=== PATIENT | male | born 1960 | race Caucasian/White ===

== ENCOUNTER 2017-06-13 07:15 | Inpatient (IN) ==
[2017-06-13] MEDS ORDERED: Heparin 1,000 UNITS/500 mL NS 500 ML ONE ×2 (07:20→08:38)
[2017-06-13] MEDS ORDERED: Lidocaine -MPF 1% 2 ML VIAL ID ONE (07:41)
[2017-06-13] MEDS ORDERED: Albuterol 2.5 MG/3 ML NEBULIZER IH ONE (07:41)
[2017-06-13] MEDS ORDERED: Vancomycin 750 MG in D5% in Water 250 ML IVPB ONE ×2 (07:41→20:00)
[2017-06-13] MEDS ORDERED: CeFAZolin Pre 2,000 MG/100 ML 2,000 MG/100 ML BAG IVPB ONE (07:41)
[2017-06-13] MEDS ORDERED: Ringers Solution, Lactated 1,000 ML IVC SCH (07:45)
[2017-06-13] MEDS ORDERED: Albuterol 2.5 MG/3 ML NEBULIZER ONE (07:48)
--- NOTE | 2017-06-13 07:56 | History & Physical Report ---
Date of Encounter: 06/13/17 Time of Encounter: 07:55 24 Hour HP Update - Instructions Instructions: If the History and Physical is less than 30 days old and was completed prior to A.M. admission and or procedure and has NOT been updated on calendar day of procedure please complete this update prior to performing procedure. - Update Patient reports changes in Medical Condition: No Changes in examination, assessment, or condition: No Changes in Medication: No Preop tests/diagnostics Reviewed: Yes Surgery Remains Indicated: Yes Consent for Planned Operative Procedure(s) Verified: Yes - Pre-Operative Checklist Preoperative Checklist Indicated: Yes Prophylactic Antibiotic Ordered: Yes (Vancomycin due to MRSA risk) Home Medications Include Beta Bobby: No Beta Bobby Taken Today (Day of Surgery): No Beta Bobby Taken Yesterday (Day Prior to Surgery): No Is VTE Prophylaxis Indicated?: Yes
--- NOTE | 2017-06-13 08:10 | Anesthesia Evaluation PreOp ---
Date of Encounter: 06/13/17 Time of Encounter: 08:08 - Past History Planned Operation: Fem to fem thrombectomy (revision) Cardiac History: [place] (around 10 years ago), HTN, Hyperlipidemia, Cardiac Stent ( stent placement 2005), Other (peripheral vascular disease) Pulmonary History: Smoker, COPD CHEMIST BIOLOGICAL History: CVA (visual loss due to stroke, still present) Other Medical History: Denies Any Significant HX Anesthesia History: No Prior Anesthetic Complications, Past Anesthesia (fem-fem bypass) Alcohol Use: none Drug use: none Medications and Allergies Allergies No Known Allergies Allergy (Verified 04/28/17 15:45) - Meds/Allergy Pre-op Review Medications Reviewed: Yes Allergies Reviewed: Yes Beta Blockers on Current Med List: Yes (metoprolol) If Beta Blockers taken, Date/Time (Last Dose taken): 06-12-17 at 9 am - will dose today in Pre-Op Anesthesia Results - Labs Laboratory Tests 06/06/17 06/06/17 06/06/17 13:20 13:20 13:20 WBC 4.4 Hgb 15.0 Hct 44.2 Plt Count 182 PT 11.4 INR 1.1 APTT 34.4 Sodium 134 L Potassium 4.3 Chloride 98 Carbon Dioxide 26 BUN 3 L Creatinine 0.64 L Est GFR ( Amer) > 60 Est GFR (Non-Af Amer) > 60 BUN/Creatinine Ratio 5 L Glucose 106 H Calculated Osmolality 275 L - Imaging EKG: report reviewed, image reviewed (SINUS TACHYCARDIA Poor R wave progression INFEROLATERAL ISCHEMIA) Anesthesia Exam Last Vital Signs Temp 98.6 F 06/13/17 07:52 Pulse 105 06/13/17 07:52 Resp 18 06/13/17 08:00 BP 115/71 06/13/17 08:00 Pulse Ox 96 06/13/17 08:00 Weight: 53 kg NPO (# of Hours): >> 8 hrs - HEENT Pupil (Motor): Pupils equal, EOMI Mallampati: III Teeth: Edentulous Oral Opening: Greater than 3 - CHEMIST BIOLOGICAL LOC: Oriented - Cardiac Rhythm: Regular Murmur: None - Pulmonary Breath Sounds: bilateral Clear Respiratory Effort: Symmetrical Anesthesia Assess/Plan ASA Score: 3 Modified Ritchie Scale for Level of Consciousness: Cooperative, oriented, and tranquil Anesthetic Plan: General Monitoring Plan: Standard Monitors, A-Line Recovery Plan: PACU
[2017-06-13] MEDS ORDERED: *HR* FentaNYL (PF) 100 MCG/2 ML VIAL ONE (08:21)
[2017-06-13] MEDS ORDERED: *HR* Midazolam HCl 2 MG/2 ML VIAL ONE (08:21)
[2017-06-13] MEDS ORDERED: *HR* Propofol 200 MG/20 ML VIAL IVP ONE (08:22)
[2017-06-13] MEDS ORDERED: Lidocaine -MPF 2% 2 ML VIAL ONE ×2 (08:23→09:03)
[2017-06-13] MEDS ORDERED: *HR* Succinylcholine 200 MG/10 ML VIAL IVP ONE (08:23)
[2017-06-13] MEDS ORDERED: *HR* Phenylephrine 10 MG/ML VIAL ONE (08:24)
[2017-06-13] MEDS ORDERED: *HR* Remifentanil 2 MG VIAL IVP ONE (08:55)
[2017-06-13] MEDS ORDERED: Lidocaine -MPF 4% 5 ML AMPUL ONE (09:01)
[2017-06-13] MEDS ORDERED: *HR* Etomidate 40 MG/20 ML VIAL IVP ONE (09:36)
[2017-06-13] MEDS ORDERED: *HR* Heparin 5,000 UNIT/ML VIAL ONE (10:10)
[2017-06-13] MEDS ORDERED: Dexamethasone 4 MG/ML VIAL ONE ×2 (10:15→10:55)
[2017-06-13] MEDS ORDERED: Ondansetron 4 MG/2 ML VIAL ONE (10:55)
[2017-06-13] MEDS ORDERED: *HR* Promethazine 25 MG/ML VIAL IVP PRN (11:41)
[2017-06-13] MEDS ORDERED: *HR* HYDROmorphone (PF) 1 MG/ML SYRINGE IVP PRN (11:41)
--- NOTE | 2017-06-13 11:56 | Operative Note ---
Date of procedure: 06/13/17 Pre-op diagnosis: Peripheral vascular disease Post-op diagnosis: same Procedure: 1. Right femoral to left femoral artery bypass graft thrombectomy with 5 togolese bill embolectomy catheter 2. Right femoral to left femoral artery bypass graft revision at distal anastamosis. 2. Left lower extremity thrombectomy. 3. Left deep femoral artery endarterectomy. Complications: None Anesthesia: GETA Surgeon: Woo Weems Estimated blood loss (cc): 100 Specimen: Graft thrombus and left lower extremity plaque Condition: stable Disposition: PACU Procedure in Detail: Indications: The patient is a 56 year old female with a history of peripheral vascular disease with disabling claudication. He previously underwent a right common femoral to left common femoral artery bypass. He developed recurrent symptoms and a CT scan revealed that his graft was occluded. Thrombectomy with revision was recommended for symptomatic relief and to reduce his risk of limb loss. Procedure: The patient was identified in the preoperative area. The risks, benefits and alternatives were discussed and all questions were answered. The patient was taken to the operating room and placed in the supine position on the operating room table. After the induction of general endotracheal anesthesia, the patient was cleaned and draped in the normal sterile fashion. An oblique incision was made sharply through his previous left groin scar overlying the femoral vessels. Hemostasis was obtained with electrocautery. Through a process of blunt, sharp and electrocautery dissection, the distal external iliac, deep and superficial femoral arteries were dissected and surrounded with vessel loops. The graft was also dissected and surrounded with vesel loops. The patient received a 5000 unit bolus of heparin. After waiting adequate time or the heparin to circulate, the vessels were occluded with the vessel loops. A longitudinal arteriotomy was made through the graft anastamosis and extended proximally into the [place] artery. No flow was noted on release of the loops. A 5french bill catheter was passed through the graft and into the right femoral artery and inflated. It was withdrawn and some acute thrombus and chronic embolic material was retrieved. This was sent to pathology. Brisk pulsatile flow was noted through the femoral to femoral artery bypass graft.. Additional passes of the catheter resulted in no additional thrombus or embolus. The graft was flushed with heparinized saline and clamped. A 5 togolese bill catheter was passed distally and thrombus was retrieved from the deep femoral artery. Significant retrograde flow was noted from the deep femoral artery. However, extensive plaque was noted to be obstructing the origin. A dental freer was used to perform an endarterectomy on the deep femoral artery. This resulted in improved retrograde flow. The endpoints were inspected and no elevated flaps were noted. A 5 togolese bill catheter was passed distally into the tibial vessels. Thrombus was retrieved on the first pass. Additional passes resulted in no additional thrombus. Retrograde flow as noted. The vessels and graft were flushed with heparin. The left limb of the graft was noted to be collapsed due to excess graft material. Excess graft was excised. A hemashield patch was cut to fit the defect. The patch was then sutured to the graft and [place] artery with a running 6-0 prolene. The ends of the graft were incorporated into the new suture line. Prior to completing the closure, the vessels were flushed, the graft was flushed and heparin was infused into the lumen. Flow was restored in the [place] vessels and graft. Polyphasic signals were identified in the femoral vessels. The wound was irrigated with antibiotic containing saline. Hemostasis was obtained with electrocautery. The wound was reapproximated with 2-0 and 3-0 vicryl. Skin was reapproximated with 3-0 Monocryl. Sterile dressings were applied. The patient was extubated and taken to the recover room in stable condition.
[2017-06-13] MEDS ORDERED: Ringers Solution, Lactated 1,000 ML ONE (11:58)
--- NOTE | 2017-06-13 12:16 | Anesthesia Evaluation Post Op ---
Date of Encounter: 06/13/17 Time of Encounter: 12:15 - Vital Signs Vital Signs: Vital Signs/O2 Sat/Glucose, Most Current Temp Pulse Resp BP Pulse Ox 06/13/17 12:00 107 16 139/90 96 06/13/17 11:50 97 16 145/90 95 06/13/17 11:40 98.9 F 100 16 159/79 93 - Lungs Lungs: Clear Ascult./Percussion - Airway Airway: Non-obstructed - Cardiovascular Regular Rate - Mental Status Mental Status: Alert & Oriented, Answers Appropriately - Pain Pain Scale: 0 - Nausea Vomiting Nausea Vomiting: Not Present - Hydration Hydration: Ice chips - Discharge PostOp Status: Transfer Patient to floor
[2017-06-13] MEDS ORDERED: Naloxone 0.4 MG/ML INJ IVP PRN (12:32)
[2017-06-13] MEDS ORDERED: Acetaminophen 325 MG TABLET PO PRN (12:32)
[2017-06-13] MEDS ORDERED: Ondansetron 4 MG/2 ML VIAL IVP PRN (12:32)
[2017-06-13] MEDS ORDERED: *HR* Labetalol 20 MG/4 ML SYRINGE IVP PRN (12:32)
[2017-06-13] MEDS: *HR* OxyCODONE Immed Rel 5 MG TABLET PO PRN ×2 (13:26→20:20)
[2017-06-13] MEDS: Gabapentin 300 MG CAPSULE PO SCH ×2 (15:01→20:20)
[2017-06-13] MEDS: Famotidine 20 MG TABLET PO SCH (15:01)
[2017-06-13] MEDS: ceFAZolin 2,000 MG in D5% in Water 100 ML IVPB SCH (15:01)
--- NOTE | 2017-06-13 15:38 | Discharge Summary ---
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 Status: Acute (2) Atheroscler nonbiologic bypass graft right leg w/intermit claudication Status: Acute (3) Essential hypertension Status: Acute (4) Mixed hyperlipidemia Status: Acute (5) Tobacco abuse Status: Acute - Discharge Medications Prescriptions: Oxycodone HCl/Acetaminophen [Percocet 5-325 mg Tablet] 1 each PO Q4H PRN #25 tablet PRN Reason: postoperative pain Home Medications: Aspirin [Lo-Dose Aspirin EC] 81 mg PO DAILY 06/13/17 [History] Beclomethasone Diprop 80mcg [QVAR 80 mcg] 1 puff IH BID 06/13/17 [History] Enalapril Maleate [Vasotec] 20 mg PO BID 06/13/17 [History] Fluticasone/Salmeterol [Advair 100-50 Diskus] 1 puff IH BID 06/13/17 [History] Gabapentin [Neurontin] 300 mg PO TID 06/13/17 [History] Metoprolol Succinate 100 mg PO DAILY 06/13/17 [History] Oxycodone HCl/Acetaminophen [Percocet 5-325 mg Tablet] 1 each PO Q4H PRN #25 tablet 06/13/17 [Rx] Ranitidine HCl [Acid Career Agent] 150 mg PO BID 06/13/17 [History] Simvastatin [Zocor] 40 mg PO HS 06/13/17 [History] Trazodone HCl 50 mg PO HS 06/13/17 [History] Allergies/Adverse Reactions: Allergies No Known Allergies Allergy (Verified 06/13/17 08:58) Date of admission: 06/13/17 12:28 Primary care physician: David Morley MD Procedure(s) Performed: FEM-FEM thrombectomy, left lower extremity thrombectomy Discharging clinician: Woo Weems Anticipated date of discharge: 06/14/17 - Patient Status Disposition: Home, Self-Care Condition: Fair - Discharge Instructions Follow Up With: Woo Weems MD [Partnered Physician] - 07/28/17 1:50 pm David Morley MD [Primary Care Provider] - 06/18/17 10:15 am - Hospital Course Hospital course: Mr. Inman is a 56 year old male - Time Spent with Patient Total time spent providing and/or coordinating discharge services: Exam Vital Signs, Last 4 Hours Temp Pulse Resp BP Pulse Ox 06/13/17 14:45 87 18 124/79 97 06/13/17 14:20 18 136/85 06/13/17 13:45 91 18 124/81 94 06/13/17 13:30 93 18 136/79 94 06/13/17 13:15 99 18 131/89 95 06/13/17 13:00 98.2 F 97 18 128/83 94 06/13/17 12:38 92 18 140/89 95 06/13/17 12:30 98.1 F 103 16 96 06/13/17 12:20 103 16 147/87 96 06/13/17 12:10 98.3 F 110 16 142/88 96 06/13/17 12:00 107 16 139/90 96 06/13/17 11:50 97 16 145/90 95 06/13/17 11:40 98.9 F 100 16 159/79 93 - VTE Documentation of Mechanical Device: Intermittent pneumatic compression device <Raul Gibbs - Last Filed: 06/14/17 09:46> Date of Encounter: 06/14/17 Time of Encounter: 09:43 - Discharge Diagnosis (1) 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 Date of admission: 06/13/17 12:28 Primary care physician: David Morley MD Consults: None - Patient Status Functional capacity at discharge: uses cane/walker Overall status at discharge: patient is progressing back to baseline - Diet and Activity Activity: increase activity as tolerated Diet: advance to your usual diet - Hospital Course Hospital course: Mr. Inman is a 56 year old male With a known history of vascular occlusive disease. He is status post a right to left femoral-femoral bypass graft. The graft had thrombosed. The patient underwent a left groin exploration with thrombectomy of the bypass graft. Gnosticism of flow was achieved. The patient had an uneventful night. The patient was felt fit for discharge on the morning of postoperative day #1. - Time Spent with Patient Total time spent providing and/or coordinating discharge services: Exam Vital Signs, Last 4 Hours Temp Pulse Resp BP Pulse Ox 06/14/17 07:48 14 95 06/14/17 07:11 97.0 F L 91 14 151/84 97 General: Present: Conversant, No Apparent Distress HEENT: Present: Atraumatic Neck: Absent: JVD Neuro: Present: Alert and responsive, No focal deficits noted Abdomen: Present: Soft, Non-tender Vascular: Present: Surgical incisions (Patient has dressing over left groin incision.), Other (There is a bruit present over the right groin and the cross femoral graft and the left groin.). Absent: Edema
[2017-06-13] MEDS: *HR* HYDROcodone/Acet 5/325 mg TABLET PO PRN (16:14)
[2017-06-13] MEDS: *HR* Morphine 2 MG/ML SYRINGE IVP PRN ×2 (18:08→21:56)
[2017-06-13] MEDS: Lisinopril 20 MG TABLET PO SCH (20:20)
[2017-06-13] MEDS: Beclomethasone 80mcg MDI IH SCH (20:30)
[2017-06-13] MEDS: Budesonide/Formoterol 80/4.5 MDI IH SCH (20:30)
[2017-06-13] MEDS ORDERED: traZODone 50 MG TABLET PO SCH (21:00)
[2017-06-14] MEDS: ceFAZolin 2,000 MG in D5% in Water 100 ML IVPB SCH (00:09)
[2017-06-14] MEDS: *HR* HYDROcodone/Acet 5/325 mg TABLET PO PRN ×2 (00:16→07:33)
[2017-06-14] MEDS: *HR* OxyCODONE Immed Rel 5 MG TABLET PO PRN (02:49)
[2017-06-14 03:23] LABS: BUN/Creatinine Ratio 6 (6-26); Carbon Dioxide 26 mEq/L (19-29); Chloride 99 mEq/L (98-109); Glucose 158 mg/dL (70-99); Osmolality,Calculated 282 (280-300); Potassium 3.6 mEq/L (3.5-4.5); Sodium 136 mEq/L (136-145); eGFR For African Americans > 60 (> 60); eGFR For Non-African Americans > 60 (> 60)
[2017-06-14 03:29] LABS: Blood Urea Nitrogen 4 mg/dL (8-26); Hematocrit 39.4 % (37.5-50.1); Hemoglobin 13.4 g/dL (12.9-16.9); Immature Granulocytes % 0.4 % (0-4); Lymphocytes # 0.4 K/mcL (0.6-4.6); Lymphocytes % 6.9 %; Mean Corpuscular Hemoglobin 32.8 pg (28.0-33.3); Mean Corpuscular Volume 96.3 fL (83.0-100.0); Mean Platelet Volume 10.6 fL (9.4-12.4); Monocytes # 0.4 K/mcL (0.0-1.3); Monocytes % 7.9 %; Neutrophils # 4.3 K/mcL (1.6-8.9); Platelet Count 147 K/mcL (140-400); Red Blood Count 4.09 M/mcL (4.19-5.50); Red Cell Distribution Width 14.2 % (11.5-14.5); Segmented Neutrophils % 84.8 %
[2017-06-14] MEDS ORDERED: *HR* Heparin 5,000 UNIT/ML VIAL SQ SCH ×2 (06:00)
[2017-06-14 07:16] VITALS: BP 151/84
[2017-06-14] MEDS: Budesonide/Formoterol 80/4.5 MDI IH SCH (07:48)
[2017-06-14] MEDS: Beclomethasone 80mcg MDI IH SCH (07:48)
[2017-06-14] MEDS ORDERED: Aspirin Enteric Coated 81 MG Tablet PO SCH (09:00)
[2017-06-14] MEDS ORDERED: *HR* Metoprolol 5 MG/5 ML VIAL IVP SCH (09:00)
[2017-06-14] MEDS ORDERED: Metoprolol XL (24 HR) Succ 50 MG TAB.ER.24H PO SCH (09:00)
[2017-06-14] MEDS: Gabapentin 300 MG CAPSULE PO SCH (09:06)
[2017-06-14] MEDS: Lisinopril 20 MG TABLET PO SCH (09:06)
[2017-06-14] MEDS: Famotidine 20 MG TABLET PO SCH (09:06)
== END 2017-06-14 10:45 | disposition home or self-care (01) | DRG 181 ==
LOC: SAMDAY 07:15 → 2NNU 12:28
PROVIDERS: ADMIT Surgery; ATTEND Surgery